=== PATIENT | male | born 1995 | race African-American/Black ===

== ENCOUNTER 2020-01-11 12:47 | Emergency (ER) | payer OTHER ==
[~2020-01-11] VITALS: Ht 182.9 cm; Wt 79.9 kg
[2020-01-11 12:50] VITALS: BP 133/63
[2020-01-11] MEDS ORDERED: CEFTRIAXONE 250 MG IM ONE (13:00)
[2020-01-11] MEDS ORDERED: AZITHROMYCIN 500 MG TABLET PO ONE (13:00)
--- NOTE | 2020-01-11 13:01 | NUR ---
Pt here for STI test. Pt reports that his partner is positive for chylmidia.
[2020-01-11] MEDS ORDERED: CEFTRIAXONE 250 MG ONE (13:08)
[2020-01-11] MEDS ORDERED: AZITHROMYCIN 250 MG TABLET ONE (13:08)
[2020-01-11] MEDS ORDERED: LIDOCAINE-MPF 1%, 5ML ONE (13:08)
[2020-01-11 13:42] LABS: MICROSCOPIC INDICATED
--- NOTE | 2020-01-11 13:43 | NUR ---
chart up for recheck.
--- NOTE | 2020-01-11 14:45 | NUR ---
Patient/Caregiver given discharge instructions and they have confirmed that they understand the instructions. Patient ambulatory with steady gait.
== END 2020-01-11 14:47 | disposition home or self-care (01) ==
LOC: ED 13:09
DX: N30.00 Acute cystitis without hematuria (principal); A56.01 Chlamydial cystitis and urethritis; A54.01 Gonococcal cystitis and urethritis, unspecified; R30.0 Dysuria; F17.210 Nicotine dependence, cigarettes, uncomplicated
CPT/HCPCS: 81001; 87086; 87491; 87591; 96372; 99283; J0696